=== PATIENT | female | born 1945 | race Hispanic/Latino ===

== ENCOUNTER 2022-04-01 00:18 | Observation (INO) | payer MEDICARE ==
[2022-04-01] VITALS (28 sets, daily range): BP systolic 101–171; BP diastolic 41–72
[~2022-04-01] VITALS: Ht 152.4 cm; Wt 72.8 kg
[2022-04-01] MEDS ORDERED: ONDANSETRON 4MG INJ ONE ×2 (02:01→11:48)
[2022-04-01] MEDS ORDERED: MORPHINE 4 MG SYG ONE (02:02)
[2022-04-01 02:19] LABS: MEAN CORPUSCULAR HEMOGLOBIN 29.3 pg (27.0-33.0); MEAN CORPUSCULAR HGB CONC 34.4 g/dL (32.0-36.0); MEAN CORPUSCULAR VOLUME 85.1 fL (79-99); PLATELET COUNT (AUTO) 251 K/uL (130-400); RED BLOOD CELL COUNT(AUTO) 4.82 MIL/uL (4.00-5.50); RED CELL DISTRIBUTION WIDTH 13.7 % (11.0-15.5); WHITE BLOOD COUNT (AUTO) 16.9 K/uL (4.8-10.8)
[2022-04-01 02:20] LABS: BASOPHILS % (AUTO) 0.2 % (0.0-5.0); EOSINOPHILS % (AUTO) 0.1 % (0.0-8.0); LYMPHOCYTES % (AUTO) 14.2 % (21.0-51.0); MONOCYTES % (AUTO) 4.9 % (3.0-13.0)
[2022-04-01 02:28] LABS: APPEARANCE,URINE CLEAR (CLEAR); COLOR,URINE COLORLESS (YELLOW)
[2022-04-01 02:29] LABS: BILIRUBIN,URINE N mg/dL (NEGATIVE); GLUCOSE, URINE (UA) 500 mg/dL (NEGATIVE); PROTEIN,URINE NEGATIVE (NEGATIVE)
[2022-04-01 02:30] LABS: KETONES,URINE TRACE mg/dL (NEGATIVE); LEUKOCYTE ESTERASE ,URINE NEGATIVE Leu/uL (NEGATIVE); NITRATE,URINE NEGATIVE (NEGATIVE); UROBILINOGEN,URINE 0.2 mg/dL (0.2-1.0); WBC,URINE 0-1 /HPF (0-1)
[2022-04-01] MEDS ORDERED: ONDANSETRON 4MG INJ IVP ONE (02:30)
[2022-04-01] MEDS ORDERED: MORPHINE 4 MG SYG IM ONE (02:30)
[2022-04-01 02:31] LABS: BACTERIA,URINE None Seen /HPF (None Seen)
[2022-04-01 02:37] LABS: CREATININE 1.1 mg/dL (0.5-1.5); POTASSIUM 3.5 mmol/L (3.5-5.1); TOTAL PROTEIN, SERUM 8.1 g/dL (6.0-8.3)
[2022-04-01 02:38] LABS: ALBUMIN 3.6 g/dL (3.5-5.0)
[2022-04-01] MEDS ORDERED: IOHEXOL-350 50ML VIAL IV ONE (02:52)
[2022-04-01] MEDS ORDERED: LEVOFLOXACIN 500 MG/D5W 100 ML 100 ML IV SCH (04:00)
[2022-04-01] MEDS ORDERED: MORPHINE 4 MG SYG IVP ONE (05:00)
[2022-04-01] MEDS ORDERED: HYDROMORPHONE 0.5 MG SYG (0.5MG/0.5ML) IVP PRN (05:00)
[2022-04-01] MEDS: ZOSYN 3.375GM +NS 50ML IVPB SCH ×2 (05:00→05:26)
[2022-04-01] MEDS: 1/2 NS 1000ML 1,000 ML IV SCH ×2 (05:25→17:59)
[2022-04-01] MEDS ORDERED: METRONIDAZOLE 500MG/100ML BAG 100 ML IVPB SCH (06:00)
[2022-04-01] MEDS: LEVOFLOXACIN 750 MG/D5W 150 ML 150 ML IV SCH (07:47)
[2022-04-01] MEDS: ONDANSETRON 4MG INJ IVP PRN (08:07)
[2022-04-01] MEDS ORDERED: MIDAZOLAM HCL 1 MG/ML 2ML VIAL ONE (11:48)
[2022-04-01] MEDS ORDERED: PROPOFOL 10 MG/ML 20ML VIAL IV ONE (11:49)
[2022-04-01] MEDS ORDERED: SUCCINYLCHOLINE 200MG/10ML SYR ONE (11:49)
[2022-04-01] MEDS ORDERED: ROCURONIUM 10MG/1ML SYR 10 MG/ML ML ONE (11:49)
[2022-04-01] MEDS ORDERED: FENTANYL CITRATE PF 50 MCG/1 ML 2ML VIAL ONE ×2 (11:49→12:44)
[2022-04-01] MEDS: BUPIVACAINE/EPI/PF 0.5% 30ML VIAL IJ SCH ×2 (12:00→12:08)
[2022-04-01] MEDS ORDERED: COMPOUND IV MISC 1 EACH IVSOLN MISC PRN (12:00)
[2022-04-01] MEDS: METRONIDAZOLE 250MG/50ML 50 ML IV SCH ×2 (12:00→17:59)
[2022-04-01] MEDS ORDERED: NEOSTIGMINE 5MG/5ML SYR IV ONE (12:46)
[2022-04-01] MEDS ORDERED: GLYCOPYRROLATE 1 MG/5 ML SYRINGE ONE (12:46)
[2022-04-01] MEDS ORDERED: METOPROLOL TARTRATE 1 MG/ML 5ML VIAL IV ONE (13:22)
[2022-04-01] MEDS ORDERED: METOCLOPRAMIDE 10 MG/2 ML VIAL ONE (13:58)
[2022-04-02 00:01] VITALS: BP 103/41
[2022-04-02] MEDS ORDERED: METRONIDAZOLE 500MG/100ML BAG 100 ML ONE ×2 (00:42→06:22)
[2022-04-02] MEDS: 1/2 NS 1000ML 1,000 ML IV SCH ×3 (00:44→13:00)
[2022-04-02 04:38] VITALS: BP 98/44
[2022-04-02 04:55] LABS: BASOPHILS % (AUTO) 0.2 % (0.0-5.0); EOSINOPHILS % (AUTO) 1.4 % (0.0-8.0); HEMATOCRIT 32.7 % (36-48); LYMPHOCYTES % (AUTO) 19.4 % (21.0-51.0); MEAN CORPUSCULAR HEMOGLOBIN 29.2 pg (27.0-33.0); MEAN CORPUSCULAR HGB CONC 32.7 g/dL (32.0-36.0); MEAN CORPUSCULAR VOLUME 89.1 fL (79-99); MONOCYTES % (AUTO) 9.7 % (3.0-13.0); NEUTROPHILS % (AUTO) 68.9 % (40.0-77.0); PLATELET COUNT (AUTO) 177 K/uL (130-400); RED BLOOD CELL COUNT(AUTO) 3.67 MIL/uL (4.00-5.50); RED CELL DISTRIBUTION WIDTH 14.4 % (11.0-15.5); WHITE BLOOD COUNT (AUTO) 12.3 K/uL (4.8-10.8)
[2022-04-02 05:09] LABS: ALBUMIN 2.5 g/dL (3.5-5.0); CREATININE 1.1 mg/dL (0.5-1.5); TOTAL PROTEIN, SERUM 6.1 g/dL (6.0-8.3)
[2022-04-02 05:20] LABS: POTASSIUM 2.7 mmol/L (3.5-5.1)
[2022-04-02 05:23] VITALS: BP 98/44
[2022-04-02] MEDS: METRONIDAZOLE 250MG/50ML 50 ML IV SCH ×3 (06:00→12:00)
[2022-04-02] MEDS ORDERED: KCL 20 MEQ ERTAB PO ONE (06:23)
[2022-04-02] MEDS ORDERED: LIDOCAINE HCL-MPF 1% 2ML VIAL IV PRN ×2 (06:30)
[2022-04-02] MEDS ORDERED: POTASSIUM CHLORIDE 20MEQ/100ML 100 ML IV PRN ×2 (06:30)
[2022-04-02] MEDS ORDERED: POTASSIUM CHLORIDE 10% ELIXIR 20 MEQ/15 ML UDCUP PO PRN (06:30)
[2022-04-02 08:00] VITALS: BP 122/51
[2022-04-02] MEDS: LEVOFLOXACIN 750 MG/D5W 150 ML 150 ML IV SCH (08:10)
[2022-04-02] MEDS ORDERED: ACETAMINOPHEN 325 MG TAB PO PRN (08:30)
[2022-04-02] MEDS: KCL 20 MEQ ERTAB PO PRN ×3 (09:49→15:32)
[2022-04-02 12:00] VITALS: BP 142/53
[2022-04-02] MEDS: ONDANSETRON 4MG INJ IVP PRN (13:12)
[2022-04-02] MEDS ORDERED: METRONIDAZOLE 500MG/100ML BAG 100 ML IVPB SCH (14:00)
[2022-04-02 16:00] VITALS: BP 138/67
== END 2022-04-02 18:48 | disposition home or self-care (01) ==
LOC: EDH 00:18 → EDHIP 04:39 → INTOOBSV 04:39 → 3DH 05:49
PROVIDERS: ADMIT Internal Medicine; ATTEND Internal Medicine
DX: K35.80 Unspecified acute appendicitis (principal); Z20.822 Contact with and (suspected) exposure to COVID-19; I10 Essential (primary) hypertension; K66.0 Peritoneal adhesions (postprocedural) (postinfection); M19.90 Unspecified osteoarthritis, unspecified site; D72.829 Elevated white blood cell count, unspecified; E11.9 Type 2 diabetes mellitus without complications; E78.00 Pure hypercholesterolemia, unspecified; Z88.0 Allergy status to penicillin; Z79.899 Other long term (current) drug therapy
CPT/HCPCS: 44970; 96372; 96361 ×2; 96366 ×2; 96367; 99285; 84484; 80053 ×2; 83690; 85025 ×2; 82948 ×7; 81001; 36415 ×2; 88304; 87635; 74177; 96365; 96375; 96376 ×2; 93005; 84132; G0378 ×27; J7030; A4344; J3010 ×2; J3490 ×7; J0330; J2710; J1956 ×2; J2250; J2704; J2405 ×5; J2270 ×2; J2543; J2765; Q9967; A4649 ×4; A4223; A4222

== ENCOUNTER → 2022-08-13 | Outpatient (CLI) | payer MEDICARE ==
[~2022-08-13] MED LIST: IOHEXOL-350 50ML VIAL IV ONE
== END | disposition home or self-care (01) ==
LOC: RAH 09:14
PROVIDERS: ATTEND Ophthalmology
DX: H02.825 Cysts of left lower eyelid (principal); J32.3 Chronic sphenoidal sinusitis; J32.2 Chronic ethmoidal sinusitis
CPT/HCPCS: 70482; Q9967